=== PATIENT | male | born 1950 ===

== ENCOUNTER 2018-09-05 06:31 | Day surgery (SDC) | payer MEDICARE, BC ==
[2018-09-05] MEDS ORDERED: Lactated Ringer's 500 ML IV ONE (07:52)
[2018-09-05] MEDS ORDERED: Propofol 10 mg/ml Inj (20 ML) ONE (08:00)
[2018-09-05 08:03] VITALS: O2SAT 100
[2018-09-05 10:46] VITALS: TEMP 97.6
[2018-09-05 10:58] VITALS: BP 152/73; PULSE 57; RESP 18
== END 2018-09-05 09:45 | disposition home or self-care (01) ==
LOC: C.ENDO 06:31
PROVIDERS: ATTEND Internal Medicine Gastroenterology
DX: K62.5 Hemorrhage of anus and rectum (principal); D12.2 Benign neoplasm of ascending colon; D12.0 Benign neoplasm of cecum
CPT/HCPCS: 45380; 45385; 88305; J2704; J7120